=== PATIENT | male | born 1960 | race African-American/Black ===

== ENCOUNTER 2017-03-04 07:36 | Emergency (ER) | payer OTHER ==
[~2017-03-04] VITALS: Ht 182.9 cm; Wt 98.2 kg
[2017-03-04 08:24] LABS: HEMATOCRIT 40.6 % (38.0-50.0); MCHC 35.7 G/DL (30.0-36.0); MCV 83.9 FL (86-99); MEAN PLAT.VOLUME 9.9 uM^3 (9.0-12.4); PLATELET COUNT 156 K/uL (156-360); RBC DIS.WIDTH-CV 11.6 % (11.8-14.6); RBC DIS.WIDTH-SD 35.3 % (39-53); RED BLOOD COUNT 4.84 M/uL (4.00-5.50); WHITE BLOOD COUNT 4.4 K/uL (4.1-10.2)
[2017-03-04 08:42] LABS: CHLORIDE 94 mEq/L (99-109); POTASSIUM 4.1 mEq/L (3.7-5.4); SODIUM 130 mEq/L (136-147)
[2017-03-04 08:45] LABS: ANION GAP 16 MEQ/L (2-14); TROP-I INTERPRETATION NEGATIVE; TROPONIN-I 0.02 ng/mL (0.0-0.30)
[2017-03-04 08:46] LABS: TOTAL BILIRUBIN 0.5 mg/dL (0.0-1.0)
[2017-03-04 08:48] LABS: ALKALINE PHOSPHATASE 120 IU/L (3-129); GFR ESTIMATE (CALCULATED) > 59 mL/min/; GLUCOSE 495 mg/dL (70-99)
[2017-03-04 08:49] LABS: UREA NITROGEN (BUN) 17 mg/dL (9-23)
[2017-03-04 09:25] LABS: ADD MIUA? NO; BILIRUBIN NEGATIVE; BLOOD NEGATIVE; COLOR STRAW ((YELLOW)); GLUCOSE (STRIP) >=500; KETONES 20; LEUKOCYTES NEGATIVE; NITRITE NEGATIVE; PROTEIN (STRIP) NEGATIVE; SPECIFIC GRAVITY 1.022 (1.000-1.030); UCUL ADDED? NO; UROBILINOGEN 0.2 MG/DL (0.2-1.0)
[2017-03-04 09:56] LABS: POINT-OF-CARE METER ID UU13113747
[2017-03-04] MEDS ORDERED: GLUCOPHAGE500 MG PO (11:29)
[2017-03-04 11:58] LABS: POINT-OF-CARE METER ID UU13113747
[2017-03-04 12:00] VITALS: BP 104/69
== END 2017-03-04 12:02 ==
LOC: EME 07:36
PROVIDERS: Emergency Medicine
DX: E11.65 Type 2 diabetes mellitus with hyperglycemia (principal); E78.5 Hyperlipidemia, unspecified; F17.200 Nicotine dependence, unspecified, uncomplicated
CPT/HCPCS: 70450; 80053; 81003; 82948; 84484; 85027; 93005; 99281; 99285; J7030

== ENCOUNTER 2017-03-06 17:42 | Emergency (ER) | payer OTHER ==
[~2017-03-06] VITALS: Ht 182.9 cm; Wt 99.3 kg
[~2017-03-06 17:42] MED LIST: GLUCOPHAGE500 MG PO
[2017-03-06 18:10] LABS: POINT-OF-CARE METER ID UU14100415
[2017-03-06 18:14] LABS: MCH 30.1 PG (29.0-34.0); MCHC 35.9 G/DL (30.0-36.0); MCV 83.9 FL (86-99); PLATELET COUNT 168 K/uL (156-360); RBC DIS.WIDTH-CV 11.8 % (11.8-14.6); RBC DIS.WIDTH-SD 35.8 % (39-53); RED BLOOD COUNT 4.65 M/uL (4.00-5.50); WHITE BLOOD COUNT 5.9 K/uL (4.1-10.2)
[2017-03-06] MEDS ORDERED: SYNTHROID50 MCG PO (18:15)
[2017-03-06] MEDS ORDERED: ASPIRIN81 M2 PO (18:16)
[2017-03-06] MEDS ORDERED: LIORESAL10 MG PO (18:16)
[2017-03-06] MEDS ORDERED: MOTRIN800 MG PO (18:16)
[2017-03-06] MEDS ORDERED: SELENIUM SULFI118 ML TP (18:17)
[2017-03-06] MEDS ORDERED: ZOCOR20 MG PO (18:17)
[2017-03-06] MEDS ORDERED: NYSTATIN (18:17)
[2017-03-06] MEDS ORDERED: GLUCOPHAGE500 MG PO (18:18)
[2017-03-06] MEDS ORDERED: VITAMIN E (18:18)
[2017-03-06 18:25] LABS: CHLORIDE 103 mEq/L (99-109); POTASSIUM 3.9 mEq/L (3.7-5.4); SODIUM 132 mEq/L (136-147)
[2017-03-06 18:27] LABS: GLUCOSE 252 mg/dL (70-99)
[2017-03-06 18:28] LABS: ANION GAP 12 MEQ/L (2-14)
[2017-03-06 18:31] LABS: GFR ESTIMATE (CALCULATED) > 59 mL/min/
[2017-03-06 18:32] LABS: UREA NITROGEN (BUN) 10 mg/dL (9-23)
[2017-03-06 19:15] LABS: ADD MIUA? NO; BILIRUBIN NEGATIVE; BLOOD NEGATIVE; COLOR YELLOW ((YELLOW)); GLUCOSE (STRIP) >=500; KETONES 80; LEUKOCYTES NEGATIVE; NITRITE NEGATIVE; PROTEIN (STRIP) NEGATIVE; SPECIFIC GRAVITY 1.021 (1.000-1.030); UROBILINOGEN 0.2 MG/DL (0.2-1.0)
[2017-03-06 19:25] LABS: UCUL ADDED? NO
[2017-03-06 22:25] LABS: POINT-OF-CARE METER ID UU14100415
[2017-03-06 23:14] LABS: POINT-OF-CARE METER ID UU14100415
[2017-03-06 23:15] VITALS: BP 109/72
== END 2017-03-06 23:43 ==
LOC: EME 17:42
PROVIDERS: Emergency Medicine
DX: E11.65 Type 2 diabetes mellitus with hyperglycemia (principal); Z79.84 Long term (current) use of oral hypoglycemic drugs; E78.5 Hyperlipidemia, unspecified; Z87.891 Personal history of nicotine dependence
CPT/HCPCS: 71020; 80048; 81003; 82010; 82803; 82948; 85027; 93005; 99281; 99285; J7030